=== PATIENT | female | born 1960 | race Caucasian/White ===

== ENCOUNTER 2017-11-03 11:44 | Emergency (ER) | payer BC ==
[2017-11-03 12:17] VITALS: BP 141/78
--- NOTE | 2017-11-03 12:31 | EDM.PDOC ---
ED HPI GENERAL MEDICAL PROBLEM - General Chief Complaint: ENT Problem Stated Complaint: PAIN BEHIND RIGHT EAR-SHUNT Time Seen by Provider: 11/03/17 12:14 Source of Information: Reports: Patient History Limitations: Reports: No Limitations - History of Present Illness INITIAL COMMENTS - FREE TEXT/NARRATIVE: Patient is a 57-year-old female with a history of hydrocephalus with VICE INVESTIGATOR shunt in place. Developed pain to the right mastoid earlier this morning with increasing pain palpation. As of recent has also complained of some sinus condition and runny nose with a slight cough. Denies any fever, ear drainage, headache, vision changes, nausea/vomiting, focal neurological deficits, or sore throat. She has no history of malfunctions of the shunt. She's had poor follow- up with a neurosurgeon. She has taken Fiorinal this morning with no relief. She does take Ambien for sleeping. Treatments PUBLIC HEALTH ENGINEER: Reports: Other (see below) Other Treatments PUBLIC HEALTH ENGINEER: fiorinal Right Ear Pain Score (Numeric/FACES): 5 - Related Data Allergies Allergy/AdvReac Type Severity Reaction Status Date / Time tegaderm tape Allergy Rash Uncoded 11/03/17 11:59 Home Meds: Home Meds Zolpidem Tartrate [Zolpidem Tartrate ER] 12.5 mg PO BEDTIME 10/13/16 [History] Acetaminophen/HYDROcodone [Tyrone 325-5 MG] 1 tab PO Q6H PRN #12 tablet 11/03/17 [Rx] Doxycycline [Vibramycin] 100 mg PO BID #20 cap 11/03/17 [Rx] Fiorinal? 11/03/17 [History] Past Medical History - Past Health History Medical/Surgical History: Denies Medical/Surgical History Other HEENT History: wears glasses Cardiovascular History: Reports: None Respiratory History: Reports: None Gastrointestinal History: Reports: Chronic Diarrhea, Irritable Bowel Syndrome, Other (See Below) Genitourinary History: Reports: Other (See Below) Other Genitourinary History: recent UTI, finished antibiotics on 06-02-17 BUGGY MAN History: Reports: None Musculoskeletal History: Reports: None Neurological History: Reports: Other (See Below) Other Neuro History: Arnold-Chiari Syndrome with Hydrocephalus Psychiatric History: Reports: None Endocrine/Metabolic History: Reports: None Hematologic History: Reports: None Immunologic History: Reports: None Oncologic (Cancer) History: Reports: None Dermatologic History: Reports: None - Past Surgical History GI Surgical History: Reports: Appendectomy, Cholecystectomy Female Surgical History: Reports: Hysterectomy, Tubal Ligation Neurological Surgical History: Reports: C-Spine, Lumbar Spine, Spinal Fusion, Other (See Below) Other Neurological Surgeries/Procedures: has [facility] shunt '07 in [place] Musculoskeletal Surgical History: Reports: Shoulder Surgery, Other (See Below) Other Musculoskeletal Surgeries/Procedures:: Bilateral RTCR, bunionectomy ,both feet(has screw in right foot) Social & Family History - Family History Family Medical History: Noncontributory - Tobacco Use Smoking Status *Q: Former Smoker Years of Tobacco use: 30 Packs/Tins Daily: 1 Used Tobacco, but Quit: Yes Month/Year Tobacco Last Used: September - Alcohol Use Days Per Week of Alcohol Use: 1 - Recreational Drug Use Recreational Drug Use: No Drug Use in Last 12 Months: No ED ROS ENT - Review of Systems Review Of Systems: ROS reveals no pertinent complaints other than HPI. ED EXAM, ENT - Physical Exam Exam: See Below Exam Limited By: No Limitations General Appearance: Alert, WD/WN, No Apparent Distress Eye Exam: Bilateral Eye: EOMI, Nystagmus (none found), PERRL Ears: Normal External Exam, Normal Canal, Hearing Grossly Normal, Normal TMs ( left), Other ( Cone of light reflex is not present to the right TM. faint erythema present. No drainage, perforation, or bulging noted.) Nose: Normal Inspection Mouth/Throat: Normal Inspection, Normal Oropharynx Head: Atraumatic, Other (Tenderness noted along the right mastoid with palpation. No swelling or bruising or redness noted. Cerebral shunt palpated on the same side with no discomfort) Neck: Normal Inspection, Supple, Non-Tender, Full Range of Motion. No: Lymphadenopathy (L), Lymphadenopathy (R) Respiratory/Chest: No Respiratory Distress, Lungs Clear, Normal Breath Sounds, No Accessory Muscle Use, Chest Non-Tender Cardiovascular: Normal Peripheral Pulses, Regular Rate, Rhythm GI/Abdominal: Normal Bowel Sounds, Soft, Non-Tender, No Organomegaly, No Distention Extremities: Normal Inspection Neurological: Alert, Oriented, CN II-XII Intact, Normal Cognition, No Motor/ Sensory Deficits Psychiatric: Normal Affect, Normal Mood Skin: Warm, Dry, Intact, Normal Color, No Rash Course - Vital Signs Last Recorded V/S: Last Vital Signs Temp 97.0 F 11/03/17 12:10 Pulse 54 L 11/03/17 12:10 Resp 17 11/03/17 12:10 BP 141/78 H 11/03/17 12:10 Pulse Ox 97 11/03/17 12:10 - Orders/Labs/Meds Labs: Laboratory Tests 11/03/17 11/03/17 Range/Units 12:40 12:40 WBC 7.74 (3.98-10.04) K/mm3 RBC 4.39 (3.98-5.22) M/mm3 Hgb 13.3 (11.2-15.7) gm/L Hct 40.1 (34.1-44.9) % MCV 91.3 (79.4-94.8) fl MCH 30.3 (25.6-32.2) pg MCHC 33.2 (32.2-35.5) g/dl RDW Std Deviation 42.3 (36.4-46.3) fL Plt Count 199 (182-369) K/mm3 MPV 11.2 (9.4-12.3) fl Neutrophils % (Manual) 54 (40-60) % Band Neutrophils % 0 (0-10) % Lymphocytes % (Manual) 36 (20-40) % Atypical Lymphs % 0 % Monocytes % (Manual) 1 L (2-10) % Eosinophils % (Manual) 9 H (0.7-5.8) % Basophils % (Manual) 0 L (0.1-1.2) Platelet Estimate Adequate RBC Morph Comment Normal Sodium 145 (136-145) mEq/L Potassium 4.8 (3.5-5.1) mEq/L Chloride 109 H (98-107) mEq/L Carbon Dioxide 26 (21-32) mEq/L Anion Gap 14.8 (5-15) BUN 15 (7-18) mg/dL Creatinine 0.8 (0.55-1.02) mg/dL Est Cr Clr Drug Dosing 68.97 mL/min Estimated GFR (MDRD) > 60 (>60) mL/min BUN/Creatinine Ratio 18.8 H (14-18) Glucose 93 (74-106) mg/dL Calcium 9.1 (8.5-10.1) mg/dL Total Bilirubin 0.2 (0.2-1.0) mg/dL AST 26 (15-37) U/L ALT 31 (14-59) U/L Alkaline Phosphatase 129 H (46-116) U/L C-Reactive Protein 1.1 H* (<1.0) mg/dL Total Protein 7.2 (6.4-8.2) g/dl Albumin 3.8 (3.4-5.0) g/dl Globulin 3.4 gm/dL Albumin/Globulin Ratio 1.1 (1-2) Meds: Medications Discontinued Medications Generic Name Dose Route Start Last Admin Trade Name Marika PRN Reason Stop Dose Admin Ibuprofen 600 mg 11/03/17 13:45 11/03/17 13:50 Motrin PO 11/03/17 13:46 600 mg ONETIME ONE Administration - Re-Assessments/Exams Free Text/Narrative Re-Assessment/Exam: Will obtain basic labs including CBC, chem 14, CRP, and head CT without contrast to evaluate for mastoiditis. Will also be able to evaluate for the cerebral shunt as well. 11/03/17 13:34 CT of the head reviewed with Dr. Keyes no signs of mastoiditis. Final interpretation is pending. 11/03/17 13:20 Per nursing staff patients HR has been in the fifties with one reading of 39. She has no symptoms. Ordered EKG. Labs reviewed: CBC and chemistry panel essentially normal. CRP mildly elevated 1.1. EKG: Sinus bradycardia 47. No acute ST changes. QT is prolonged at 517. She is on no medications for this. She is asymptomatic. Discussed with Dr. Keyes. no additional testing and or therapies required. Ordered: Doxycycline 200mg PO here in the E.D. Will discharge patient home with prescription for doxycycline. Suspect cause of pain is an viral upper respiratory/early onset otitis media. Cone of light reflex is gone and TM is dull. Will treat with doxycycline for 10 days. She will followup with PCP this coming week for reevaluation. 11/03/17 14:12 Per patient heart is normally low. The patient remained hemodynamically stable while under my care in the E.D. I reviewed the patients care today and discussed the concerning symptoms for which to returnto the E.D. with the patient/family. The patient/family verbalized understanding. All questions were answered. Departure - Departure Time of Disposition: 13:47 Disposition: Home, Self-Care 01 Condition: Good Clinical Impression: Pain of right mastoid, Bradycardia Otitis Qualifiers: Laterality: right Qualified Code(s): H66.91 - Otitis media, unspecified, right ear - Discharge Information Prescriptions: Acetaminophen/HYDROcodone [Tyrone 325-5 MG] 1 tab PO Q6H PRN #12 tablet PRN Reason: Pain (Severe 7-10) Doxycycline [Vibramycin] 100 mg PO BID #20 cap Instructions: Otitis Media, Adult, [id number] Referrals: Gordon Krueger PA-C [Primary Care Provider] - Forms: ED Department Discharge Additional Instructions: Take the doxycycline as prescribed. May place 1 compresses to the affected area as needed throughout the course of day to relieve any discomfort. Utilize Tylenol and ibuprofen in alternating fashion for discomfort. For severe pain take Tyrone one tab every [address] not drive while taking the Tyrone. Follow-up with PCP middle part of next week if symptoms persist. Return to the ED if you develop any new or worsening symptoms as discussed. In addition EKG revealed that you have sinus bradycaridia. You're not having any symptoms thus is asymptomatic bradycardia. Please monitor for any symptoms such as dizziness, presyncope/sycopal episodes, chest discomfort, or any additional complaints.
--- NOTE | 2017-11-03 13:39 | CT ---
Head CT Technique: Multiple axial sections through the brain were obtained. Intravenous contrast was not utilized. Comparison: No prior intracranial imaging. Findings: Prior suboccipital craniotomy is noted. Intraventricular shunt is seen. Ventricles do not appear dilated. Sulci over the convexities and basal cisterns are within normal limits. No abnormal parenchymal densities are seen. No evidence of intracranial hemorrhage. No midline shift or mass effect is seen. Paranasal sinuses are clear. Mastoid sinuses are clear. Middle ear cavities are also clear. No acute calvarial abnormality is appreciated. Impression: 1. Suboccipital craniotomy. Intraventricular shunt. 2. Nothing acute is seen on noncontrast head CT exam. Diagnostic code #2
[2017-11-03] MEDS ORDERED: Ibuprofen 600 MG Tab PO ONE (13:45)
== END 2017-11-03 14:40 | disposition home or self-care (01) ==
LOC: JD.ED 11:44
DX: H66.91 Otitis media, unspecified, right ear (principal); R00.1 Bradycardia, unspecified; Z87.891 Personal history of nicotine dependence; Z91.09 Other allergy status, other than to drugs and biological substances
CPT/HCPCS: 36415; 70450; 80053; 85025; 86140; 93005; 99284; A9270

== ENCOUNTER 2017-11-25 14:40 | Emergency (ER) | payer BC ==
[2017-11-25 15:07] VITALS: BP 144/67
[2017-11-25] MEDS ORDERED: Morphine 2 MG/ML Syringe IVPUSH ONE (16:48)
[2017-11-25] MEDS ORDERED: Sodium Chloride 0.9% 1,000 ML IV ONE (16:48)
[2017-11-25] MEDS ORDERED: Ondansetron 4 MG/2 ML SDV IVPUSH ONE (16:48)
--- NOTE | 2017-11-25 16:50 | EDM.PDOC ---
ED HPI GENERAL MEDICAL PROBLEM - General Chief Complaint: Flank Pain Stated Complaint: KIDNEY PAIN Time Seen by Provider: 11/25/17 16:30 Source of Information: Reports: Patient History Limitations: Reports: No Limitations - History of Present Illness INITIAL COMMENTS - FREE TEXT/NARRATIVE: Marisa is a 57yo female here with left sided flank pain, starting abruptly around 10am this morning. Pain has worsened as the day goes on. No f/c/s. She has vomited due to the pain, no epigastric pain- only flank. No s/s of UTI however since she has been to ED she has had more urgency and frequency symptoms , no dysuria or moises hematuria. She has had kidney stones in the past, that were "small enough to pass", this was around 2 years ago. PCP is Gordon Krueger PA-C with [facility] in [facility]. Onset: Today Location: Reports: Abdomen (left), Pelvis (left) Quality: Reports: Sharp, Stabbing Severity: Moderate Improves with: Reports: Rest Worsens with: Reports: Movement Associated Symptoms: Reports: Nausea/Vomiting (vomiting this evening x 2 or 3). Denies: Confusion, Chest Pain, Cough, Diaphoresis, Fever/Chills, Headaches, Loss of Appetite, Shortness of Breath Left Flank Pain Score (Numeric/FACES): 9 - Related Data Allergies Allergy/AdvReac Type Severity Reaction Status Date / Time tegaderm tape Allergy Rash Uncoded 11/25/17 15:00 Home Meds: Home Meds Zolpidem Tartrate [Zolpidem Tartrate ER] 12.5 mg PO BEDTIME PRN 10/13/16 [ History] Fiorinal? 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 History: Reports: None Musculoskeletal History: Reports: None Neurological History: Reports: Other (See Below) Other Neuro History: Arnold-Chiari Syndrome with Hydrocephalus Psychiatric History: Reports: None Endocrine/Metabolic History: Reports: None Hematologic History: Reports: None Immunologic History: Reports: None Oncologic (Cancer) History: Reports: None Dermatologic History: Reports: None - Past Surgical History GI Surgical History: Reports: Appendectomy, Cholecystectomy Female Surgical History: Reports: Hysterectomy, Tubal Ligation Neurological Surgical History: Reports: C-Spine, Lumbar Spine, Spinal Fusion, Other (See Below) Other Neurological Surgeries/Procedures: 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 [place] Musculoskeletal Surgical History: Reports: Shoulder Surgery, Other (See Below) Other Musculoskeletal Surgeries/Procedures:: Bilateral RTCR, bunionectomy ,both feet(has screw in right foot) Social & Family History - Family History Family Medical History: Noncontributory - Tobacco Use Smoking Status *Q: Never Smoker Years of Tobacco use: 30 Packs/Tins Daily: 1 Used Tobacco, but Quit: Yes Month/Year Tobacco Last Used: September Second Hand Smoke Exposure: No - Caffeine Use Caffeine Use: Reports: None - Alcohol Use Days Per Week of Alcohol Use: 1 - Recreational Drug Use Recreational Drug Use: No Drug Use in Last 12 Months: No ED ROS GENERAL - Review of Systems Review Of Systems: See Below Constitutional: Reports: No Symptoms. Denies: Fever, Chills, Malaise, Weakness , Fatigue HEENT: Reports: No Symptoms Respiratory: Reports: No Symptoms Cardiovascular: Reports: No Symptoms GI/Abdominal: Reports: Abdominal Pain (left flank), Nausea, Vomiting (x 2-3 this evening). Denies: Constipation, Diarrhea : Reports: Flank Pain (left), Frequency, Pain, Urgency. Denies: Discharge, Dysuria, Urinary Retention Neurological: Reports: No Symptoms Psychiatric: Reports: No Symptoms ED EXAM, RENAL/ - Physical Exam Exam: See Below Exam Limited By: No Limitations General Appearance: Alert, WD/WN, Mild Distress, Other ( position on cart- most comfortable position for her) Eye Exam: Bilateral Eye: EOMI, PERRL Ears: Normal External Exam, Hearing Grossly Normal Nose: Normal Inspection Throat/Mouth: Normal Inspection, Normal Lips, Normal Teeth, Normal Gums, Normal Voice, No Airway Compromise Head: Atraumatic, Normocephalic Neck: Normal Inspection, Supple Respiratory/Chest: No Respiratory Distress, Lungs Clear, Normal Breath Sounds Cardiovascular: Regular Rate, Rhythm, No Edema, No Murmur GI/Abdominal: Normal Bowel Sounds, Soft, No Distention, Tender (LLQ and suprapubic). No: Guarding, Rigid, Rebound (Female) Exam: Deferred Rectal (Female) Exam: Deferred Back Exam: CVA Tenderness (L). No: CVA Tenderness (R) Extremities: Normal Inspection, No Pedal Edema Neurological: Alert, Oriented Psychiatric: Normal Affect, Normal Mood, Anxious Skin Exam: Warm, Dry, Intact Course - Vital Signs Last Recorded V/S: Last Vital Signs Temp 98.4 F 11/25/17 15:01 Pulse 50 L 11/25/17 15:01 Resp 14 11/25/17 15:01 BP 144/67 H 11/25/17 15:01 Pulse Ox 98 11/25/17 15:01 - Orders/Labs/Meds Orders: Active Orders 24 hr Category Date Time Status UA W/MICROSCOPIC [URIN] Stat Lab 11/25/17 16:31 Ordered Labs: Laboratory Tests 11/25/17 11/25/17 11/25/17 Range/Units 15:15 15:15 16:31 WBC 7.26 (3.98-10.04) K/mm3 RBC 4.10 (3.98-5.22) M/mm3 Hgb 12.5 (11.2-15.7) gm/L Hct 37.6 (34.1-44.9) % MCV 91.7 (79.4-94.8) fl MCH 30.5 (25.6-32.2) pg MCHC 33.2 (32.2-35.5) g/dl RDW Std Deviation 42.0 (36.4-46.3) fL Plt Count 212 (182-369) K/mm3 MPV 11.4 (9.4-12.3) fl Neutrophils % (Manual) 54 (40-60) % Band Neutrophils % 0 (0-10) % Lymphocytes % (Manual) 37 (20-40) % Atypical Lymphs % 0 % Monocytes % (Manual) 7 (2-10) % Eosinophils % (Manual) 2 (0.7-5.8) % Basophils % (Manual) 0 L (0.1-1.2) Platelet Estimate Adequate Plt Morphology Comment Normal RBC Morph Comment Normal Sodium 144 (136-145) mEq/L Potassium 3.9 (3.5-5.1) mEq/L Chloride 110 H (98-107) mEq/L Carbon Dioxide 24 (21-32) mEq/L Anion Gap 13.9 (5-15) BUN 15 (7-18) mg/dL Creatinine 0.9 (0.55-1.02) mg/dL Est Cr Clr Drug Dosing 61.31 mL/min Estimated GFR (MDRD) > 60 (>60) mL/min BUN/Creatinine Ratio 16.7 (14-18) Glucose 110 H (74-106) mg/dL Calcium 8.7 (8.5-10.1) mg/dL Total Bilirubin 0.2 (0.2-1.0) mg/dL AST 22 (15-37) U/L ALT 42 (14-59) U/L Alkaline Phosphatase 131 H (46-116) U/L Total Protein 7.3 (6.4-8.2) g/dl Albumin 3.5 (3.4-5.0) g/dl Globulin 3.8 gm/dL Albumin/Globulin Ratio 0.9 L (1-2) Urine Color Yellow (Yellow) Urine Appearance Clear (Clear) Urine pH 5.5 (5.0-8.0) Ur Specific [place] 1.025 (1.005-1.030) Urine Protein 1+ H (Negative) Urine Glucose (UA) Negative (Negative) Urine Ketones Negative (Negative) Urine Occult Blood 3+ H (Negative) Urine Nitrite Negative (Negative) Urine Bilirubin Negative (Negative) Urine Urobilinogen 0.2 (0.2-1.0) Ur Leukocyte Esterase Negative (Negative) Urine RBC 20-30 H (0-5) /hpf Urine WBC 0-5 (0-5) /hpf Ur Epithelial Cells 0-5 (0-5) /hpf Urine Bacteria Moderate H (FEW) /hpf Urine Mucus Not seen (FEW) /hpf Meds: Medications Discontinued Medications Generic Name Dose Route Start Last Admin Trade Name Freq PRN Reason Stop Dose Admin Sodium Chloride 1,000 mls @ 999 mls/hr 11/25/17 16:48 11/25/17 16:52 Normal Saline IV 11/25/17 17:48 999 mls/hr ONETIME ONE Administration Ketorolac Tromethamine 30 mg 11/25/17 17:34 11/25/17 17:43 Toradol IVPUSH 11/25/17 17:35 30 mg ONETIME ONE Administration Morphine Sulfate 2 mg 11/25/17 16:48 11/25/17 16:53 Morphine IVPUSH 11/25/17 16:49 2 mg ONETIME ONE Administration Ondansetron HCl 4 mg 11/25/17 16:48 11/25/17 16:57 Zofran IVPUSH 11/25/17 16:49 4 mg ONETIME ONE Administration Tamsulosin HCl 0.4 mg 11/25/17 17:57 11/25/17 18:11 Flomax PO 11/25/17 17:58 0.4 mg ONETIME ONE Administration - Re-Assessments/Exams Free Text/Narrative Re-Assessment/Exam: 11/25/17 19:28 UA is obtained showing hematuria, no infection. CT of abd/pelvis with renal stone protocol obtained. Patient medicated with morphine IV, toradol IV, IVF one liter. PO flomax given. -- Pain is improved. Review findings of 4mm stone to left UVJ, likely should pass based on size, however if pain persists she will need to follow up with PCP Gordon Krueger early to mid week. There is a risk this may not pass, she currently has mild hydronephrosis by report so if pain persists would recommend f/up or consult with Urology. Departure - Departure Time of Disposition: 17:58 Disposition: Home, Self-Care 01 Condition: Good Clinical Impression: Ureteric colic, Nephrolithiasis - Discharge Information Instructions: Renal Colic, [id number], Kidney Stones, [id number], Dietary Guidelines to Help Prevent Kidney Stones Referrals: Gordon Krueger PA-C [Primary Care Provider] - Forms: ED Department Discharge Additional Instructions: Push fluids Strain all urine- if stone is caught bring in for analysis Pain medication if needed, otherwise ibuprofen 600mg 3 times daily with food for pain and inflammation Follow up with PCPGordon PA-C early this week for recheck Stone to left side is 4mm, there is also a small stone within the right kidney on CT scan of your abdomen tonight. There is no evidence of bladder infection, kidney studies are normal on your blood work. Return to ER if needed. - My Orders Last 24 Hours: My Active Orders 11/25/17 16:31 UA W/MICROSCOPIC [URIN] Stat - Assessment/Plan Last 24 Hours: My Active Orders 11/25/17 16:31 UA W/MICROSCOPIC [URIN] Stat
--- NOTE | 2017-11-25 17:32 | CT ---
CT abdomen and pelvis Technique: Multiple axial sections were obtained from above the dome of the diaphragm inferiorly through the pubic symphysis. Intravenous and oral contrast was not utilized. Comparison: No prior CT study. Findings: Left kidney shows mild hydronephrosis. Small nonobstructing calculus is seen within the right kidney measuring less than 5 mm. Left ureter is mildly prominent. These findings are caused by a distal left ureteral stone measuring about 4.2 mm located slightly proximal to the UVJ. No other abnormal calcifications are seen along the course of the ureters. Visualized lung bases shows nothing acute. Liver shows no focal parenchymal abnormality. Spleen appears within normal limits. Adrenal glands show no nodule. Surgical clips are seen from prior cholecystectomy. Ventriculoperitoneal shunt is noted. Pancreas appears within normal limits. Aorta and iliac vessels shows no aneurysmal dilatation. No retroperitoneal adenopathy or mesenteric abnormalities are noted. No pelvic mass or adenopathy is seen. No free fluid is seen. No significant inflammatory change is seen. Slight increased stool is noted throughout the colon as well as some fecalized small bowel material also being seen. No bowel dilatation is noted. Bone window settings were reviewed which shows previous surgery at L5-S1. Impression: 1. 4.2 mm stone located proximal to the left UVJ causing mild proximal left sided hydronephrosis. 2. Small nonobstructing calculus within the right kidney measuring less than 5 mm. 3. Other incidental findings as noted above. Diagnostic code #3
[2017-11-25] MEDS ORDERED: Ketorolac 30 MG/ML SDV IVPUSH ONE (17:34)
[2017-11-25] MEDS ORDERED: Tamsulosin 0.4 MG Cap.ER PO ONE (17:57)
== END 2017-11-25 18:20 | disposition home or self-care (01) ==
LOC: JD.ED 14:40
DX: N13.2 Hydronephrosis with renal and ureteral calculous obstruction (principal); Z79.899 Other long term (current) drug therapy; Z98.890 Other specified postprocedural states
CPT/HCPCS: 36415; 74176; 80053; 81001; 85025; 96361; 96374; 96375; 99284; A9270; J1885; J2270; J2405; J7040

== ENCOUNTER 2023-01-07 22:32 | Emergency (ER) | payer BC, MEDICARE ==
[2023-01-07] MEDS ORDERED: Ondansetron 4 MG/2 ML SDV IVPUSH ONE (22:49)
[2023-01-07] MEDS ORDERED: Sodium Chloride 0.9% 10 ML Syringe FLUSH PRN (22:50)
[2023-01-07] MEDS ORDERED: Sodium Chloride 0.9% 1,000 ML IV SCH (23:00)
[2023-01-07 23:07] LABS: BASOPHILS ABSOLUTE AUTO 0.04 K/mm3 (0.01-0.08); BASOPHILS PERCENT AUTO 0.5 % (0.1-1.2); EOSINOPHILS ABSOLUTE AUTO 0.28 K/mm3 (0.04-0.36); EOSINOPHILS PERCENT AUTO 3.4 (0.7-5.8); HEMATOCRIT 36.7 % (34.1-44.9); IMMATURE GRAN ABSOLUTE AUTO 0.01 K/mm3 (0.00-0.10); IMMATURE GRAN PERCENT AUTO 0.1 % (<=1.0); LYMPHOCYTES ABSOLUTE AUTO 3.22 K/mm3 (1.18-3.74); LYMPHOCYTES PERCENT AUTO 39.5 % (19.3-51.7); MEAN CORPUSCULAR HEMOGLOBIN 29.9 pg (25.6-32.2); MEAN CORPUSCULAR HGB CONC 32.7 g/dl (32.2-35.5); MEAN CORPUSCULAR VOLUME 91.5 fl (79.4-94.8); MEAN PLATELET VOLUME 11.1 fl (9.4-12.3); MONOCYTES ABSOLUTE AUTO 0.68 K/mm3 (0.24-0.36); MONOCYTES PERCENT AUTO 8.3 % (4.7-12.5); NEUTROPHILS ABSOLUTE AUTO 3.92 K/mm3 (1.56-6.13); NEUTROPHILS PERCENT AUTO 48.2 % (34.0-71.1); PLATELET COUNT,PLT 203 K/mm3 (182-369); RED BLOOD CELL COUNT 4.01 M/mm3 (3.98-5.22); WHITE BLOOD CELL COUNT,WBC 8.15 K/mm3 (3.98-10.04)
[2023-01-07 23:09] LABS: BILIRUBIN,URINE 2+ (Negative); COLOR,URINE AMBER (Yellow); GLUCOSE,URINE 1+ (Negative); KETONES,URINE 1+ (Negative); LEUKOCYTE ESTERASE,URINE 3+ (Negative); NITRITE,URINE POSITIVE (Negative); OCCULT BLOOD,URINE 3+ (Negative); PROTEIN,URINE 3+ (Negative); UROBILINOGEN,URINE >=8.0 (0.2-1.0)
[2023-01-07 23:18] LABS: APPEARANCE,URINE SLT CLOUDY (Clear)
[2023-01-07 23:19] LABS: BACTERIA,URINE MODERATE /hpf (FEW); CALCIUM OXALATE CRYSTALS,URINE MODERATE; MUCUS,URINE NOT SEEN /hpf (FEW); RBC,URINE >100 /hpf (0-5); RENAL EPITHELIAL CELLS,URINE 0-5 /hpf (0-5); SQUAMOUS EPITHELIAL CELLS,UR 0-5 /hpf (0-5)
[2023-01-07 23:27] LABS: A/G RATIO 1.1 (1-2); ALBUMIN 3.7 g/dl (3.4-5.0); ANION GAP 13.7 (5-15); BILIRUBIN TOTAL 0.2 mg/dL (0.2-1.0); BUN/CREATININE RATIO 13.3 (14-18); C-REACTIVE PROTEIN 0.2 mg/dL (<1.0); CREATININE 1.2 mg/dL (0.55-1.02); EST CRCL DRUG DOSING (CG) 43.18 mL/min; POTASSIUM,K 3.7 mEq/L (3.5-5.1); PROTEIN TOTAL,TP 7.2 g/dl (6.4-8.2)
[2023-01-08] MEDS ORDERED: HYDROmorphone 0.5 MG/0.5 ML Syringe IVPUSH ONE (01:04)
[2023-01-08 02:00] VITALS: BP 133/68; PULSE 65
== END 2023-01-08 01:34 | disposition home or self-care (01) ==
LOC: JD.ED 22:32
DX: N13.2 Hydronephrosis with renal and ureteral calculous obstruction (principal); Z87.891 Personal history of nicotine dependence; Z88.8 Allergy status to other drugs, medicaments and biological substances
CPT/HCPCS: 36415; 74176; 80053; 81001; 85025; 86140; 87086; 96361; 96374; 96375; 99284; J1170; J2405; J3490; J7030